=== PATIENT | female | born 1995 | race Caucasian/White ===

== ENCOUNTER 2017-06-09 00:38 | Emergency (ER) | payer OTHER ==
[~2017-06-09] VITALS: Ht 160 cm; Wt 61.2 kg
[~2017-06-09 00:38] MED LIST: BIRTH CONTROL IMPLAN; IBUPROFEN800 MG PO; KLONOPIN0.5 M1 PO; LORAZEPAM0.5 MG PO; MEDROL DOSEPAK4 MG PO; PRENATAL TABLE1 EAC3 PO; VALACYCLOVIR500 MG PO; WELLBUTRIN75 MG PO; XANAX0.25 MG PO; ZITHROMAX Z-PA250 MG PO; xanax
[2017-06-09 06:26] VITALS: BP 96/78
== END 2017-06-09 06:27 | disposition home or self-care (01) ==
LOC: EME 00:38
DX: F32.9 Major depressive disorder, single episode, unspecified (principal); F10.129 Alcohol abuse with intoxication, unspecified; Y90.7 Blood alcohol level of 200-239 mg/100 ml; R45.851 Suicidal ideations; Z87.891 Personal history of nicotine dependence
CPT/HCPCS: 90837; 99281; 99285; G0480

== ENCOUNTER 2017-10-12 22:34 | Emergency (ER) | payer OTHER ==
[~2017-10-12] VITALS: Ht 160 cm; Wt 62.0 kg
[2017-10-12 22:35] VITALS: BP 113/73
[2017-10-12 23:07] LABS: HEMATOCRIT 38.3 % (36.0-46.0); MCH 30.2 PG (29.0-34.0); MCHC 33.2 G/DL (30.0-36.0); MEAN PLAT.VOLUME 11.9 uM^3 (9.5-12.4); PLATELET COUNT 242 K/uL (156-360); RBC DIS.WIDTH-CV 12.8 % (11.8-14.6); RBC DIS.WIDTH-SD 42.2 % (39-53); RED BLOOD COUNT 4.21 M/uL (3.80-5.20); WHITE BLOOD COUNT 6.6 K/uL (4.1-10.2)
[2017-10-12 23:19] LABS: ADD MIUA? NO; BILIRUBIN NEGATIVE; BLOOD NEGATIVE; COLOR YELLOW ((YELLOW)); GLUCOSE (STRIP) NEGATIVE; KETONES NEGATIVE; LEUKOCYTES NEGATIVE; NITRITE NEGATIVE; PROTEIN (STRIP) NEGATIVE; SPECIFIC GRAVITY 1.016 (1.000-1.030); UCUL ADDED? NO; UROBILINOGEN 0.2 MG/DL (0.2-1.0)
[2017-10-12 23:21] LABS: CHLORIDE 105 mEq/L (99-109); POTASSIUM 4.1 mEq/L (3.7-5.4); SODIUM 140 mEq/L (136-147)
[2017-10-12 23:23] LABS: GLUCOSE 105 mg/dL (70-99)
[2017-10-12 23:24] LABS: ANION GAP 9 MEQ/L (2-14)
[2017-10-12 23:27] LABS: GFR ESTIMATE (CALCULATED) > 59 mL/min/
[2017-10-12 23:28] LABS: UREA NITROGEN (BUN) 11 mg/dL (9-23)
== END 2017-10-13 00:11 | disposition left against medical advice (07) ==
LOC: EME 22:34
DX: R10.9 Unspecified abdominal pain (principal); Z53.21 Procedure and treatment not carried out due to patient leaving prior to being seen by health care provider
CPT/HCPCS: 80048; 81003; 85027; 99281